=== PATIENT | female | born 1970 | race African-American/Black ===

== ENCOUNTER 2018-06-24 17:47 | Emergency (ER) | payer OTHER ==
[2018-06-24 18:04] VITALS: BMI 30.7
--- NOTE | 2018-06-24 18:13 | PDOC ---
History of Present Illness - General Chief Complaint: Migraine Headache Stated Complaint: HEADACHE Time Seen by Provider: 06/24/18 18:02 - History of Present Illness Initial Comments: 06/24/18 18:47 The patient is a 48 year old female with a history of HTN, Migraines who presents for evaluation of headache. The patient reports gradual onset diffuse pressure like headache beginning noon today that has progressively worsened and associated with photophobia, phonophobia, nausea and 1 episode of non-bilious, non-bloody vomiting prompting her presentation to the ED for further evaluation. She notes that she took 650mg of tylenol at noon without improvement in her symptoms. She reports that her symptoms feel similar to her prior migraine headaches. She otherwise denies fevers, chills, SOB, chest pain , abdominal pain, numbness, tingling, weakness, or changes with urination or bowel movements. Past History - Past Medical History Allergies/Adverse Reactions: Allergies Allergy/AdvReac Type Severity Reaction Status Date / Time No Known Allergies Allergy Verified 06/24/18 18:00 Home Medications: Ambulatory Orders Hydrochlorothiazide [Hctz -] 50 mg PO DAILY 06/24/18 COPD: No HTN: Yes - Suicide/Smoking/Psychosocial Hx Smoking History: Current every day smoker Have you smoked in the past 12 months: Yes Number of Cigarettes Smoked Daily: 4 Information on smoking cessation initiated: No Hx Alcohol Use: No Drug/Substance Use Hx: No Review of Systems - Review of Systems Comments:: 06/24/18 18:50 Constitutional: No fevers, chills, fatigue, malaise HEENT: No Rhinorrhea, nasal congestion, visual changes Cardiovascular: No chest pain, syncope, palpitations, lightheadedness Respiratory: No Cough, SOB, Hemoptysis, Gastrointestinal: Nausea, vomiting. No Abdominal pain, Constipation, Diarrhea, Melena Genitourinary: No Dysuria, Frequency, Urgency, Hesitancy, Hematuria, Flank pain Musculoskeletal: No Myalgia, arthralgia Skin: No rashes, itching, bruising, pallor Neurologic: Headache. No Dizziness, Numbness, Weakness, or Tingling Psychiatric: No Hallucinations. No SI or HI *Physical Exam - Vital Signs Last Vital Signs Temp Pulse Resp BP Pulse Ox 97.3 F L 63 22 H 174/93 H 100 06/24/18 18:00 06/24/18 18:00 06/24/18 18:00 06/24/18 18:00 06/24/18 18:00 - Physical Exam Comments: 06/24/18 18:51 General Appearance: Nourished. In Mild Apparent Distress HEENT: EOMI, ITZEL. No Pharyngeal Erythema, Tonsillar Exudate, Tonsillar Erythema Neck: No Cervical Lymphadenopathy Respiratory/Chest: Lungs Clear, Normal Breath Sounds. No Crackles, Rales, Rhonchi, Wheezing Cardiovascular: Regular Rhythm, Regular Rate. No Murmur, Gallops, Rubs Gastrointestinal/Abdominal: Normal Bowel Sounds, Soft. No Guarding, Rebound, Tenderness Musculoskeletal: No CVA Tenderness Extremity: Normal Capillary Refill Integumentary: Normal Color, Dry, Warm Neurologic: student services dean II-XII NML intact, Fully Oriented, Alert, Normal Mood/Affect, Normal Response, Motor Strength 5/5. ED Treatment Course - LABORATORY CBC & Chemistry Diagram: 06/24/18 18:50 06/24/18 18:50 Medical Decision Making - Medical Decision Making 06/24/18 18:51 The patient is a 48 year old female with a history of HTN, Migraines who presents for evaluation of headache. Given the patient's history and physical exam, it is likely the patient's symptoms are due to migraine headache. We will obtain a cbc, cmp, serum preg to evaluate further. We will treat with iv fluids, tylenol, reglan, and benadryl and continue to monitor and reassess while here in the ED. 06/24/18 19:58 CBC is unremarkable. CMP hemolized however the patient reports improvement in her symptoms and appears clinically well and we do not believe redraw is needed at this time. It is likely her symptoms were due to migraine headache. We are comfortable discharging the patient home in stable condition. Patient and family made aware of impression and plan, return precautions discussed including but not limited to worsening pain or symptoms, fevers, or signs of infection, chest pain, respiratory distress, inability to tolerate oral intake, dehydration, syncope, or neurologic changes. The patient is to follow up with PMD and specialist as recommended within 1 week, follow up information provided and the patient will call for an appointment. The patient is to take medications as instructed for duration of time and continue with supportive care , avoid triggers and precipitants. Patient is safe for outpatient follow-up. *DC/Admit/Observation/Transfer Diagnosis at time of Disposition: Headache Qualifiers: Headache type: unspecified Headache chronicity pattern: unspecified pattern Intractability: not intractable Qualified Code(s): R51 - Headache - Discharge Dispostion Disposition: HOME Condition at time of disposition: Stable Decision to Admit order: No - Referrals Referrals: Gray Ramirez MD [Staff Physician] - - Patient Instructions Printed Discharge Instructions: DI for Migraine Additional Instructions: 1) Please follow-up with your primary care doctor and neurologist in the next 2- 3 days. Please call tomorrow to schedule a follow up appointment. If you cannot follow up with your doctor within 1 week please return to the Emergency Department for any urgent issues. 2) You were treated with iv tylenol, fluids, reglan, and benadryl here in the ER. 3) If you have any worsening of symptoms or any other concerns please return to the ER immediately. Return if worsening symptoms including fevers, headache, vomiting, visual or hearing disturbances, abdominal pain, chest pain, shortness of breath, syncope, dehydration, inability to take things by mouth/vomiting, altered mental status, or worsening concerning symptoms. 4) Please continue taking your home medications as directed. - Post Discharge Activity
[2018-06-24] MEDS ORDERED: ACETAMINOPHEN 1000 MG/100 ML VIAL (NON FORMULARY) IVPB ONE (18:14)
[2018-06-24] MEDS ORDERED: SODIUM CHLORIDE 1,000 ML IV STA (18:14)
[2018-06-24] MEDS ORDERED: METOCLOPRAMIDE HCL INJECTION 10 MG/2 ML VIAL IVPUSH ONE (18:14)
[2018-06-24] MEDS ORDERED: ACETAMINOPHEN INJECTION 100 ML IVPB ONE (18:20)
[2018-06-24] MEDS ORDERED: METOCLOPRAMIDE HCL INJECTION 10 MG/2 ML VIAL ONE (18:20)
--- NOTE | 2018-06-24 18:24 | PDOC ---
Attending Attestation - Resident Resident Name: Jorge Cueva - ED Attending Attestation I have performed the following: I have examined & evaluated the patient, The case was reviewed & discussed with the resident, I agree w/resident's findings & plan, Exceptions are as noted - HPI HPI: 06/24/18 18:21 48-year-old female with history of hypertension and migraine headaches presents with migraine headaches. The patient reported that this morning she felt a gradual onset of tension-like headache with photophobia and photophobia typical of her migraines. However, the intensive the headache is worse than her usual. She reports that the quality of her headache is similar to past or migraines. No fevers or chills. Denies neck pain or stiffness. - Physicial Exam PE: 06/24/18 18:23 GENERAL: Awake, alert, and fully oriented, in no acute distress HEAD: No signs of trauma EYES: EOMI, sclera anicteric, conjunctiva clear ENT: Auricles normal inspection, hearing grossly normal, nares patent, Moist mucosa NECK: Normal ROM, supple EXTREMITIES: Normal range of motion, no edema. No clubbing or cyanosis. No cords, erythema, or tenderness NEUROLOGICAL: Cranial nerves II through XII grossly intact. Normal speech, full strength and sensation intact in all extremities. SKIN: Warm, Dry, normal turgor, no rashes or lesions noted. - Medical Decision Making 06/24/18 18:24 Vital Signs Temp Pulse Resp BP Pulse Ox 97.3 F L 63 22 H 174/93 H 100 06/24/18 18:00 06/24/18 18:00 06/24/18 18:00 06/24/18 18:00 06/24/18 18:00 Impression: Migraine headaches. I have low suspicion for SAH or ICH or meningitis. Treat migraines and reassess. 06/24/18 18:50 Pt signed out to oncoming ED attending Dr. Ward for further management and disposition.
[2018-06-24 19:06] LABS: BASO % 0.9 % (0-2.0); EOS % 3.5 % (0-4.5); HEMATOCRIT 37.5 % (32.4-45.2); HEMOGLOBIN 12.8 GM/dL (10.7-15.3); MCH 34.9 pg (25.7-33.7); MCHC 34.1 g/dl (32.0-36.0); MEAN CELL VOLUME 102.3 fl (80-96); MEAN PLT VOLUME 10.5 fl (7.5-11.1); MONO % 8.5 % (3.8-10.2); NEUT % 58.1 % (42.8-82.8); PLATELET COUNT 152 K/MM3 (134-434); RBC 3.66 M/mm3 (3.60-5.2); RDW 12.8 % (11.6-15.6); WHITE BLOOD COUNT 5.7 K/mm3 (4.0-10.0)
[2018-06-24 20:10] VITALS: BP 137/91; PULSE 63; TEMP 98.1
== END 2018-06-24 20:20 | disposition home or self-care (01) ==
LOC: JER 17:47
PROC: 3E033NZ Introduction of Analgesics, Hypnotics, Sedatives into Peripheral Vein, Percutaneous Approach (ICD-10-PCS; principal; 2018-06-24)
PROC: 3E033GC Introduction of Other Therapeutic Substance into Peripheral Vein, Percutaneous Approach (ICD-10-PCS; 2018-06-24)
PROC: 3E033GC Introduction of Other Therapeutic Substance into Peripheral Vein, Percutaneous Approach (ICD-10-PCS; 2018-06-24)
DX: G43.909 Migraine, unspecified, not intractable, without status migrainosus (principal); I10 Essential (primary) hypertension; F17.210 Nicotine dependence, cigarettes, uncomplicated
CPT/HCPCS: 36415; 85025; 99282-25; J0131; J7030

== ENCOUNTER 2020-09-26 23:20 | Emergency (ER) | payer OTHER ==
[2020-09-26 23:24] VITALS: TEMP 98; BMI 28.8
[2020-09-26] MEDS ORDERED: PENICILLIN G BENZATHINE 2,400,000 UNIT/4 ML PFS IM ONE (23:58)
[2020-09-27] MEDS ORDERED: PENICILLIN G BENZATHINE 2,400,000 UNIT/4 ML PFS ONE (00:20)
[2020-09-27 00:35] VITALS: BP 175/90; PULSE 76
== END 2020-09-27 00:36 | disposition home or self-care (01) ==
LOC: JER 23:20
DX: A53.9 Syphilis, unspecified (principal)
CPT/HCPCS: 99284-25

== ENCOUNTER 2021-04-30 17:49 | Emergency (ER) | payer OTHER ==
[2021-04-30] MEDS ORDERED: ACETAMINOPHEN 500 MG TABLET (FP) PO ONE (18:22)
[2021-04-30 18:23] VITALS: BP 120/80; PULSE 77; TEMP 98.6; BMI 32.4
[2021-04-30] MEDS ORDERED: ACETAMINOPHEN 325 MG TABLET (FP) ONE (18:26)
[2021-04-30] MEDS ORDERED: IBUPROFEN 600 MG TABLET (FP) PO ONE ×2 (18:55→18:59)
== END 2021-04-30 19:25 | disposition home or self-care (01) ==
LOC: JER 17:49
DX: S93.402A Sprain of unspecified ligament of left ankle, initial encounter (principal); W01.0XXA Fall on same level from slipping, tripping and stumbling without subsequent striking against object, initial encounter
CPT/HCPCS: 72100-TC-FY; 73562-TC-LT-FY; 73610-TC-LT-FY; 73630-TC-LT; 99285-25

== ENCOUNTER 2022-03-05 04:12 | Day surgery (SDC) | payer OTHER ==
[2022-03-02 15:36] VITALS: BMI 31.6
[~2022-03-05 04:12] MED LIST: BUPIVACAINE HCL/PF 0.5% (5MG/ML) 10 ML VIAL IJ ONE; LIDOCAINE HCL 1%, 10 MG/ML (20ML VIAL) NR ONE
[2022-03-05] MEDS ORDERED: BUPIVACAINE HCL/PF 0.5% (5MG/ML) 10 ML VIAL ONE (14:46)
[2022-03-05] MEDS ORDERED: LIDOCAINE HCL 1%, 10 MG/ML (20ML VIAL) ONE ×2 (14:46)
[2022-03-05] MEDS ORDERED: ALBUTEROL SO4 HFA INHALER IH ONE (15:35)
[2022-03-05] MEDS ORDERED: MIDAZOLAM HCL 2 MG/2 ML SINGLE DOSE VIAL ONE ×2 (15:43→16:56)
[2022-03-05] MEDS ORDERED: ACETAMINOPHEN INJECTION 100 ML IVPB ONE (15:55)
[2022-03-05] MEDS ORDERED: BUPIVACAINE HCL/PF 0.5% (5MG/ML) 10 ML VIAL IJ ONE ×2 (15:57)
[2022-03-05] MEDS ORDERED: LIDOCAINE HCL 1%, 10 MG/ML (20ML VIAL) NR ONE (15:57)
[2022-03-05] MEDS ORDERED: ONDANSETRON 4 MG/2 ML VIAL IVPUSH PRN (15:57)
[2022-03-05] MEDS ORDERED: oxyCODONE HCL 5 MG TABLET PO PRN (15:57)
[2022-03-05] MEDS ORDERED: ACETAMINOPHEN 1000 MG/100 ML BAG IVPB ONE (15:58)
[2022-03-05] MEDS ORDERED: LACTATED RINGERS SOLUTION 1,000 ML IV SCH (16:00)
[2022-03-05] MEDS ORDERED: ceFAZolin SODIUM 1 GM VIAL IVPB ONE ×2 (16:05→18:38)
[2022-03-05] MEDS ORDERED: HYDROmorphone HCl 2 MG/ML VIAL ONE (16:56)
[2022-03-05] MEDS ORDERED: BACITRACIN 15 GM TUBE TOPICAL OINTMENT ONE (17:17)
[2022-03-05] MEDS ORDERED: ONDANSETRON 4 MG/2 ML VIAL ONE (18:09)
[2022-03-05] MEDS ORDERED: ONDANSETRON 4 MG/2 ML VIAL IVPUSH ONE (18:12)
[2022-03-05] MEDS ORDERED: ceFAZolin SODIUM 1 GM VIAL ONE (18:23)
[2022-03-05] MEDS ORDERED: CEFAZOLIN 1 GM in DEXTROSE 5%-WATER - 50 ML IVPB ONE (19:15)
[2022-03-05 19:42] VITALS: RESP 20; TEMP 97.8
[2022-03-05 19:57] VITALS: BP 134/82; PULSE 64
== END 2022-03-05 20:15 | disposition home or self-care (01) ==
LOC: JASU-SURG 04:12
PROVIDERS: ATTEND Podiatrist Foot Surgery
PROC: 0QSP04Z Reposition Left Metatarsal with Internal Fixation Device, Open Approach (ICD-10-PCS; principal; 2022-03-05 15:00)
DX: S92.312A Displaced fracture of first metatarsal bone, left foot, initial encounter for closed fracture (principal); X58.XXXA Exposure to other specified factors, initial encounter; Y93.9 Activity, unspecified; Y92.9 Unspecified place or not applicable; Y99.9 Unspecified external cause status
CPT/HCPCS: 28485; C1713; 76000-TC-FY; 88300-TC; 94760